=== PATIENT | male | born 1990 | race Caucasian/White ===

== ENCOUNTER 2018-01-31 07:31 | Emergency (ER) | payer SELFPAY ==
--- NOTE | 2018-01-31 08:21 | EDPHYS ---
Physician Documentation [facility] Name: Jose Welch Age: 27 yrs Sex: Male : 1990 Arrival Date: 01/31/2018 Time: 07:34 Bed 8 Private MD: ED Physician Colton Esteban HPI: 01/31 07:43 This 27 yrs old Male presents to ER via Ambulatory with complaints of jr8 Vomiting, Sore Throat. 07:43 The patient presents to the emergency department with nausea, vomiting. Onset: The jr8 symptoms/episode began/occurred gradually, 3 day(s) ago. Possible causes: unknown. The symptoms are aggravated by nothing. The symptoms are alleviated by nothing. Associated signs and symptoms: Pertinent positives: sore throat, coughing, constipation. Severity of symptoms: At their worst the symptoms were mild in the emergency department the symptoms are unchanged. The patient has not experienced similar symptoms in the past. The patient has not recently seen a physician. Historical: - Allergies: 07:41 No Known Allergies; sg - PMHx: 07:41 Diabetes - IDDM; sg - Immunization history:: Adult Immunizations not up to date. - Social history:: Smoking status: Patient/guardian denies using tobacco. - Ebola Screening: : Patient negative for fever greater than or equal to 101.5 degrees Fahrenheit, and additional compatible Ebola Virus Disease symptoms Patient denies exposure to infectious person Patient denies travel to an Ebola-affected area in the 21 days before illness onset No symptoms or risks identified at this time. ROS: 07:43 Eyes: Negative for injury, pain, redness, and discharge, Neck: Negative for injury, jr8 pain, and swelling, Cardiovascular: Negative for chest pain, palpitations, and edema, Back: Negative for injury and pain, MS/Extremity: Negative for injury and deformity, Skin: Negative for injury, rash, and discoloration, Neuro: Negative for headache, weakness, numbness, tingling, and seizure. 07:43 Constitutional: Negative for fever. 07:43 ENT: Positive for sore throat, Negative for drainage from ear(s), ear pain, nasal discharge, rhinorrhea, sinus congestion, difficulty swallowing, difficulty handling secretions. 07:43 Respiratory: Positive for cough, Negative for dyspnea on exertion, shortness of breath, sputum production, wheezing. 07:43 Abdomen/GI: Positive for nausea and vomiting, constipation, Negative for abdominal pain, diarrhea, abdominal cramps, abdominal distension, anorexia, dysphagia, hematemesis, black/tarry stool, rectal pain, rectal bleeding, bowel incontinence, flatulence. Exam: 07:43 Eyes: Pupils equal round and reactive to light, extra-ocular motions intact. Lids and jr8 lashes normal. Conjunctiva and sclera are non-icteric and not injected. Cornea within normal limits. Periorbital areas with no swelling, redness, or edema. Neck: Trachea midline, no thyromegaly or masses palpated, and no cervical lymphadenopathy. Supple, full range of motion without nuchal rigidity, or vertebral point tenderness. No Meningismus. Cardiovascular: Regular rate and rhythm with a normal S1 and S2. No gallops, murmurs, or rubs. Normal PMI, no JVD. No pulse deficits. Respiratory: Lungs have equal breath sounds bilaterally, clear to auscultation and percussion. No rales, rhonchi or wheezes noted. No increased work of breathing, no retractions or nasal flaring. Abdomen/GI: Soft, non-tender, with normal bowel sounds. No distension or tympany. No guarding or rebound. No evidence of tenderness throughout. Skin: Warm, dry with normal turgor. Normal color with no rashes, no lesions, and no evidence of cellulitis. MS/ Extremity: Pulses equal, no cyanosis. Neurovascular intact. Full, normal range of motion. Neuro: Awake and alert, GCS 15, oriented to person, place, time, and situation. Cranial nerves II-XII grossly intact. Motor strength 5/5 in all extremities. Sensory grossly intact. Cerebellar exam normal. Normal gait. 07:43 ENT: Exam is negative for earache, ear discharge, TM abnormalities, nasal discharge, Mouth: Lips: moist, Oral mucosa: pink and intact, moist, Gums: pink, Tongue: is moist, Posterior pharynx: Airway: patent, Tonsils: with erythema, no enlargement, no exudate, no ulcerations, Uvula: midline, non-edematous, no erythema, swelling, is not appreciated, erythema, that is moderate. Vital Signs: 07:41 BP 142 / 87; Pulse 89; Resp 16 S; Temp 98.6(TE); Pulse Ox 98% on R/A; Weight 107.95 kg sg (R); Pain 7/10; 08:12 BP 130 / 87; Pulse 82; Resp 16; sv MDM: 07:38 Patient medically screened. jr8 08:19 Data reviewed: vital signs, nurses notes, lab test result(s), and as a result, I will jr8 discharge patient. Data interpreted: Pulse oximetry: on room air is 98 %. Interpretation: normal. Counseling: I had a detailed discussion with the patient and/or guardian regarding: the historical points, exam findings, and any diagnostic results supporting the discharge/admit diagnosis, lab results, the need for outpatient follow up, a family practitioner, to return to the emergency department if symptoms worsen or persist or if there are any questions or concerns that arise at home. 01/31 07:43 Order name: Strep; Complete Time: 08:19 [facility] 01/31 07:47 Order name: Glucose, Ancillary Testing; Complete Time: 07:55 EDMS 01/31 07:43 Order name: Glucose Level; Complete Time: 07:52 01/31 08:09 Order name: Throat Culture EDMS Administered Medications: No medications were administered Point of Care Testing: Blood Glucose: 07:47 Blood Glucose: 134 mg/dL; sv Ranges: Critical Glucose Levels:Adult <50 mg/dl or >400 mg/dl <40 mg/dl or >180 mg/dl Disposition: 14:43 Co-signature as Attending Physician, Colton Esteban MD I agree with the assessment and kdr plan of care. Disposition: 01/31/18 08:20 Discharged to Home. Impression: Acute pharyngitis. - Condition is Stable. - Discharge Instructions: Pharyngitis. - Prescriptions for Amoxicillin 875 mg Oral Tablet - take 1 tablet by ORAL route every 12 hours for 10 days; 20 tablet. Zofran 4 mg Oral Tablet - take 1 tablet by ORAL route every 12 hours As needed; 20 tablet. Tessalon Perles 100 mg Oral Capsule - take 1 capsule by ORAL route every 8 hours As needed; 15 capsule. - Medication Reconciliation Form, Thank You Letter, Antibiotic Education, Prescription Opioid Use, Work release form form. - Follow up: Private Physician; When: 5 - 6 days; Reason: Recheck today's complaints, Continuance of care, Re-evaluation by your physician. - Problem is new. - Symptoms have improved. Signatures: Dispatcher [employer] EDMS Don Yap RN RN sg Colton Esteban MD MD kdr Roszak, Josh, PA PA jr8 Marcie Mena cc3 Corrections: (The following items were deleted from the chart) 08:44 08:20 01/31/2018 08:20 Discharged to Home. Impression: Acute pharyngitis. Condition is cc3 Stable. Forms are Medication Reconciliation Form, Thank You Letter, Antibiotic Education, Prescription Opioid Use. Follow up: Private Physician; When: 5 - 6 days; Reason: Recheck today's complaints, Continuance of care, Re-evaluation by your physician. Problem is new. Symptoms have improved. jr8
--- NOTE | 2018-01-31 08:21 | ER ---
Nurse's Notes [facility] Name: Jose Welch Age: 27 yrs Sex: Male : 1990 Arrival Date: 01/31/2018 Time: 07:34 Bed 8 Private MD: Diagnosis: Acute pharyngitis Presentation: 01/31 07:38 Presenting complaint: Patient states: Sore throat that started about three days ago, sg reports BM this morning that was hard and dark brown, reports having diabetes but due to moving not able to monitor his blood sugars. Reports lower abd pain that started today. Transition of care: patient was not received from another setting of care. Onset of symptoms was January 31, 2018. Risk Assessment: Do you want to hurt yourself or someone else? Patient reports no desire to harm self or others. Initial Sepsis Screen: Does the patient meet any 2 criteria? No. Patient's initial sepsis screen is negative. Does the patient have a suspected source of infection? No. Patient's initial sepsis screen is negative. Care prior to arrival: None. 07:38 Method Of Arrival: Ambulatory 07:38 Acuity: SILVESTRE 3 sg Historical: - Allergies: 07:41 No Known Allergies; sg - PMHx: 07:41 Diabetes - IDDM; sg - Immunization history:: Adult Immunizations not up to date. - Social history:: Smoking status: Patient/guardian denies using tobacco. - Ebola Screening: : Patient negative for fever greater than or equal to 101.5 degrees Fahrenheit, and additional compatible Ebola Virus Disease symptoms Patient denies exposure to infectious person Patient denies travel to an Ebola-affected area in the 21 days before illness onset No symptoms or risks identified at this time. Screenin:48 Abuse screen: Denies threats or abuse. Denies injuries from another. Nutritional sv screening: No deficits noted. Tuberculosis screening: No symptoms or risk factors identified. Fall Risk None identified. Assessment: 07:45 General: Appears in no apparent distress. comfortable, well developed, Behavior is sv calm, cooperative, appropriate for age. Pain: Complains of pain in throat Pain currently is 7 out of 10 on a pain scale. Quality of pain is described as burning, Pain began 2-3 days ago. Is intermittent. Neuro: Level of Consciousness is awake, alert, obeys commands, Oriented to person, place, time, situation, Moves all extremities. Full function Gait is steady, Speech is normal. Respiratory: Respiratory effort is even, unlabored, Respiratory pattern is regular, symmetrical. GI: Abdomen is flat, Reports constipation, vomiting. EENT: Reports pain in throat. Derm: Skin is normal. Vital Signs: 07:41 BP 142 / 87; Pulse 89; Resp 16 S; Temp 98.6(TE); Pulse Ox 98% on R/A; Weight 107.95 kg sg (R); Pain 7/10; 08:12 BP 130 / 87; Pulse 82; Resp 16; sv ED Course: 07:34 Patient arrived in ED. tw3 07:38 Waldo Kaba PA is PHCP. jr8 07:38 Colton Esteban MD is Attending Physician. jr8 07:40 Triage completed. sg 07:42 Bettina Slaughter RN is Primary Nurse. sv 07:45 Arm band placed on right wrist. sv 07:45 Strep swab sent to lab. sv 07:48 Patient has correct armband on for positive identification. Bed in low position. Door sv closed. Head of bed elevated. 07:49 Awaiting lab results. sv 08:12 Throat Culture Sent. sv 08:30 No provider procedures requiring assistance completed. Patient did not have IV access cc3 during this emergency room visit. Administered Medications: No medications were administered Point of Care Testing: Blood Glucose: 07:47 Blood Glucose: 134 mg/dL; sv Ranges: Outcome: 08:20 Discharge ordered by . jr8 08:30 Discharged to home ambulatory. cc3 08:30 Condition: stable 08:30 Discharge instructions given to patient, Instructed on discharge instructions, follow up and referral plans. medication usage, Demonstrated understanding of instructions, follow-up care, medications, Prescriptions given X 3. 08:44 Patient left the ED. cc3 Signatures: Bettina Slaughter RN RN Don Yap RN RN Waldo Kaba PA PA jr8 Yue Alejo tw3 Marcie Mena cc3
== END 2018-01-31 08:44 | disposition home or self-care (01) ==
LOC: ER 07:31
DX: J02.9 Acute pharyngitis, unspecified (principal); E11.9 Type 2 diabetes mellitus without complications
CPT/HCPCS: 82962; 87070; 87081; 99283

== ENCOUNTER 2018-06-20 07:39 | Emergency (ER) | payer SELFPAY ==
--- NOTE | 2018-06-20 08:04 | ER ---
Nurse's Notes [facility] Name: Jose Welch Age: 28 yrs Sex: Male : 1990 Arrival Date: 06/20/2018 Time: 07:42 Bed 20 Private MD: Diagnosis: Pain in right knee Presentation: 06/20 07:43 Presenting complaint: Patient states: sharp right knee pain x 1 month. Denies injury. sv Transition of care: patient was not received from another setting of care. Onset of symptoms was May 2018. Risk Assessment: Do you want to hurt yourself or someone else? Patient reports no desire to harm self or others. Initial Sepsis Screen: Does the patient meet any 2 criteria? No. Patient's initial sepsis screen is negative. Does the patient have a suspected source of infection? No. Patient's initial sepsis screen is negative. Care prior to arrival: None. 07:43 Method Of Arrival: Ambulatory sv 07:43 Acuity: SILVESTRE 4 sv Triage Assessment: 07:43 General: Appears in no apparent distress. uncomfortable, well developed, Behavior is sv calm, cooperative, appropriate for age. Pain: Complains of pain in right knee Pain currently is 4 out of 10 on a pain scale. Quality of pain is described as sharp, Pain began a month ago Is intermittent, Aggravated by increased activity, weight bearing. Neuro: Level of Consciousness is awake, alert, obeys commands, Oriented to person, place, time, situation, Moves all extremities. Full function Gait is steady. Respiratory: Respiratory effort is even, unlabored, Respiratory pattern is regular, symmetrical. Historical: - Allergies: 07:49 Sulfa (Sulfonamide Antibiotics); sv - Home Meds: 07:49 insulin pump [Active]; sv - PMHx: 07:49 Diabetes - IDDM; sv - PSHx: 07:49 None; sv - Immunization history:: Flu vaccine is not up to date. - Social history:: Smoking status: Patient/guardian denies using tobacco, Patient/guardian denies using alcohol. - Ebola Screening: : No symptoms or risks identified at this time. - Family history:: not pertinent. Screenin:49 Abuse screen: Denies threats or abuse. Denies injuries from another. Nutritional sv screening: No deficits noted. Tuberculosis screening: No symptoms or risk factors identified. Fall Risk None identified. Assessment: 08:04 Reassessment: Patient appears in no apparent distress at this time. No changes from sv previously documented assessment. Patient and/or family updated on plan of care and expected duration. Pain level reassessed. Patient is alert, oriented x 3, equal unlabored respirations, skin warm/dry/pink. 08:05 Reassessment: Pt up for discharge but has not gotten his xray done yet. sv 09:25 Reassessment: Patient appears in no apparent distress at this time. No changes from sv previously documented assessment. Patient and/or family updated on plan of care and expected duration. Pain level reassessed. Patient is alert, oriented x 3, equal unlabored respirations, skin warm/dry/pink. Vital Signs: 07:47 BP 137 / 97; Pulse 99; Resp 16; Temp 98.2; Pulse Ox 100% ; Weight 99.34 kg; Height 6 sv ft. 1 in. (185.42 cm); Pain 4/10; 07:47 Body Mass Index 28.89 (99.34 kg, 185.42 cm) sv ED Course: 07:42 Patient arrived in ED. as 07:43 Jake Flood MD is Attending Physician. brian 07:43 Arm band placed on Patient placed in an exam room, on a stretcher. sv 07:45 Bettina Slaughter RN is Primary Nurse. sv 07:46 Triage completed. sv 07:49 ED physician to see patient. sv 07:49 Patient has correct armband on for positive identification. Bed in low position. Call sv light in reach. Door closed. Head of bed elevated. 08:04 Awaiting for x-ray. sv 08:37 Awaiting radiology results. sv 08:38 X-ray completed. Portable x-ray completed in exam room. Patient tolerated procedure mh1 well. 08:46 Awaiting radiology results. sv 08:54 Knee Right 3 View XRAY In Process Unspecified. EDMS 09:20 Patient did not have IV access during this emergency room visit. Knee immobilizer sv applied on right knee. 09:25 No provider procedures requiring assistance completed. sv Administered Medications: 08:04 Drug: Motrin 600 mg Route: PO; sv 09:25 Follow up: Response: No adverse reaction sv Outcome: 08:04 Discharge ordered by . brian 09:25 Patient left the ED. sv 09:25 Discharged to home ambulatory, with right knee immobilizer sv 09:25 Condition: stable 09:25 Discharge instructions given to patient, Instructed on discharge instructions, follow up and referral plans. medication usage, application of knee immobilizer Demonstrated understanding of instructions, follow-up care, medications, Prescriptions given X 2. Signatures: Dispatcher [employer] Bettina Banda RN RN Jake Flood MD MD cha Harvey, [facility] Page De Guzman as Corrections: (The following items were deleted from the chart) 07:49 07:43 Presenting complaint: Patient states: sharp right knee pain x 1 month. [facility]
--- NOTE | 2018-06-20 08:04 | EDPHYS ---
Physician Documentation [facility] Name: Jose Welch Age: 28 yrs Sex: Male : 1990 Arrival Date: 06/20/2018 Time: 07:42 Bed 20 Private MD: ED Physician Jake Flood HPI: 06/20 08:00 This 28 yrs old Male presents to ER via Ambulatory with complaints of Knee brian Pain. 08:00 The patient presents with decreased range of motion, pain, that is acute. The brian complaints affect the right knee. Context: The problem was sustained at an unknown site. Onset: The symptoms/episode began/occurred 2 day(s) ago. Modifying factors: The symptoms are alleviated by remaining still, the symptoms are aggravated by bending knee. Associated signs and symptoms: The patient has no apparent associated signs or symptoms. Treatment prior to arrival includes: no previous treatment, icing the affected extremity. Severity of symptoms: At their worst the symptoms were moderate, in the emergency department the symptoms are unchanged. The patient has not experienced similar symptoms in the past. Historical: - Allergies: 07:49 Sulfa (Sulfonamide Antibiotics); sv - Home Meds: 07:49 insulin pump [Active]; sv - PMHx: 07:49 Diabetes - IDDM; sv - PSHx: 07:49 None; sv - Immunization history:: Flu vaccine is not up to date. - Social history:: Smoking status: Patient/guardian denies using tobacco, Patient/guardian denies using alcohol. - Ebola Screening: : No symptoms or risks identified at this time. - Family history:: not pertinent. ROS: 08:00 Constitutional: Negative for fever, chills, and weight loss, Eyes: Negative for injury, brian pain, redness, and discharge, ENT: Negative for injury, pain, and discharge, Neck: Negative for injury, pain, and swelling, Cardiovascular: Negative for chest pain, palpitations, and edema, Respiratory: Negative for shortness of breath, cough, wheezing, and pleuritic chest pain, Abdomen/GI: Negative for abdominal pain, nausea, vomiting, diarrhea, and constipation, Back: Negative for injury and pain, : Negative for injury, bleeding, discharge, and swelling, Skin: Negative for injury, rash, and discoloration, Neuro: Negative for headache, weakness, numbness, tingling, and seizure, Psych: Negative for depression, anxiety, suicide ideation, homicidal ideation, and hallucinations, Allergy/Immunology: Negative for hives, rash, and allergies, Endocrine: Negative for neck swelling, polydipsia, polyuria, polyphagia, and marked weight changes, Hematologic/Lymphatic: Negative for swollen nodes, abnormal bleeding, and unusual bruising. 08:00 MS/extremity: Positive for decreased range of motion, pain, tenderness, of the right knee. Exam: 08:00 Constitutional: This is a well developed, well nourished patient who is awake, alert, brian and in no acute distress. Head/Face: Normocephalic, atraumatic. Eyes: Pupils equal round and reactive to light, extra-ocular motions intact. Lids and lashes normal. Conjunctiva and sclera are non-icteric and not injected. Cornea within normal limits. Periorbital areas with no swelling, redness, or edema. ENT: Nares patent. No nasal discharge, no septal abnormalities noted. Tympanic membranes are normal and external auditory canals are clear. Oropharynx with no redness, swelling, or masses, exudates, or evidence of obstruction, uvula midline. Mucous membranes moist. Neck: Trachea midline, no thyromegaly or masses palpated, and no cervical lymphadenopathy. Supple, full range of motion without nuchal rigidity, or vertebral point tenderness. No Meningismus. Chest/axilla: Normal chest wall appearance and motion. Nontender with no deformity. No lesions are appreciated. Cardiovascular: Regular rate and rhythm with a normal S1 and S2. No gallops, murmurs, or rubs. Normal PMI, no JVD. No pulse deficits. Respiratory: Lungs have equal breath sounds bilaterally, clear to auscultation and percussion. No rales, rhonchi or wheezes noted. No increased work of breathing, no retractions or nasal flaring. Abdomen/GI: Soft, non-tender, with normal bowel sounds. No distension or tympany. No guarding or rebound. No evidence of tenderness throughout. Back: No spinal tenderness. No costovertebral tenderness. Full range of motion. Male : Normal genitalia with no discharge or lesions. Skin: Warm, dry with normal turgor. Normal color with no rashes, no lesions, and no evidence of cellulitis. Neuro: Awake and alert, GCS 15, oriented to person, place, time, and situation. Cranial nerves II-XII grossly intact. Motor strength 5/5 in all extremities. Sensory grossly intact. Cerebellar exam normal. Normal gait. Psych: Awake, alert, with orientation to person, place and time. Behavior, mood, and affect are within normal limits. 08:00 Musculoskeletal/extremity: Extremities: noted in the right knee: decreased ROM, pain, ROM: limited active range of motion due to pain, limited passive range of motion due to pain, Circulation is intact in all extremities. Sensation intact. Compartment Syndrome exam of affected extremity: is normal. DVT Exam: no swelling, negative Homans' sign noted on exam, no appreciated bluish discoloration, no erythema, no increased warmth, pain, tenderness. Vital Signs: 07:47 BP 137 / 97; Pulse 99; Resp 16; Temp 98.2; Pulse Ox 100% ; Weight 99.34 kg; Height 6 sv ft. 1 in. (185.42 cm); Pain 4/10; 07:47 Body Mass Index 28.89 (99.34 kg, 185.42 cm) sv MDM: 07:43 Patient medically screened. [facility] 08:03 Data reviewed: vital signs, nurses notes, radiologic studies, plain films. [facility] 06/20 07:59 Order name: Knee Right 3 View XRAY [facility] 06/20 07:59 Order name: Knee Immobilizer; Complete Time: 09:25 [facility] Administered Medications: 08:04 Drug: Motrin 600 mg Route: PO; sv 09:25 Follow up: Response: No adverse reaction sv Disposition: 06/20/18 08:04 Discharged to Home. Impression: Pain in right knee. - Condition is Stable. - Discharge Instructions: Joint Pain, How to Use a Knee Brace, Meniscus Tear, Knee Pain, Knee - Meniscus Injury, Arthroscopy. - Prescriptions for Ibuprofen 600 mg Oral Tablet - take 1 tablet by ORAL route every 6 hours As needed take with food; 26 tablet. Tylenol- Codeine #3 300-30 mg Oral Tablet - take 2 tablets by ORAL route every 6 hours As needed; 24 tablet. - Work release form, Medication Reconciliation Form, Thank You Letter, Antibiotic Education, Prescription Opioid Use form. - Follow up: Private Physician; When: 2 - 3 days; Reason: Recheck today's complaints, Continuance of care, Re-evaluation by your physician. - Problem is new. - Symptoms have improved. Signatures: Dispatcher [employer] Bettina Banda RN RN Jake Lim MD MD cha Corrections: (The following items were deleted from the chart) 09:25 08:04 06/20/2018 08:04 Discharged to Home. Impression: Pain in right knee. Condition is sv Stable. Forms are Medication Reconciliation Form, Thank You Letter, Antibiotic Education, Prescription Opioid Use. Follow up: Private Physician; When: 2 - 3 days; Reason: Recheck today's complaints, Continuance of care, Re-evaluation by your physician. Problem is new. Symptoms have improved. brian
[2018-06-20] MEDS ORDERED: IBUPROFEN 400 MG TAB ONE (08:11)
[2018-06-20] MEDS ORDERED: IBUPROFEN 200 MG TAB PO ONE (08:11)
--- NOTE | 2018-06-20 09:27 | RAD REPORT ---
EXAM DESCRIPTION: RAD - Knee Right 3 View - 06/20/2018 8:53 am CLINICAL HISTORY: Persistent nontraumatic right knee pain COMPARISON: None. FINDINGS: No fracture, dislocation or periosteal reaction.No joint effusion seen. No joint space alicja rowing. No foreign body or other soft tissue abnormality. IMPRESSION: Negative right knee. Clinical concerns for internal derangement or occult bony injury could be further assessed with MR im aging.
== END 2018-06-20 09:25 | disposition home or self-care (01) ==
LOC: ER 07:39
DX: M25.561 Pain in right knee (principal); E11.9 Type 2 diabetes mellitus without complications
CPT/HCPCS: 99284